=== PATIENT | female | born 1975 | race Caucasian/White ===

== ENCOUNTER 2018-07-26 22:04 | Emergency (ER) | payer OTHER ==
[~2018-07-26] VITALS: Ht 162.6 cm; Wt 55.3 kg
--- NOTE | 2018-07-26 23:05 | NUR ---
Asim burton in [facility] - 07/26/18 at 2337 by JF YAMILET AWAD AT BEDSIDE FOR EVAL
[2018-07-26 23:26] LABS: BASOPHILS % (AUTO) 0.3 % (0.0-2.0); HEMATOCRIT 40 % (33-45); HEMOGLOBIN 13.6 g/dL (11.5-14.8); LYMPHOCYTES # (AUTO) 2.6 /CMM (0.8-4.8); LYMPHOCYTES % (AUTO) 31.6 % (20.0-44.0); MEAN CORPUSCULAR HGB CONC 34 g/dl (31.0-36.0); MEAN CORPUSCULAR VOLUME 94 fL (82-100); MONOCYTES # (AUTO) 0.8 /CMM (0.1-1.30); MONOCYTES % (AUTO) 9.8 % (2.0-12.0); NEUTROPHILS # (AUTO) 4.7 /CMM (1.8-8.9); NEUTROPHILS % (AUTO) 57.3 % (43.0-81.0); PLATELET COUNT (AUTO) 211 /CMM (150-450); RED BLOOD CELL COUNT(AUTO) 4.21 MIL/uL (4.0-5.2); WHITE BLOOD COUNT (AUTO) 8.2 K/uL (4.3-11.0)
[2018-07-26 23:34] LABS: CALCIUM, SERUM 8.8 mg/dL (8.5-10.1); CARBON DIOXIDE 23 mmol/L (21-32); CHLORIDE 102 mmol/L (98-107); CREATININE 0.8 mg/dL (0.6-1.3); GLUCOSE 86 mg/dL (74-106); POTASSIUM 3.2 mmol/L (3.5-5.1); SODIUM SERUM 140 mmol/L (136-145); UREA NITROGEN, BLOOD 25 mg/dL (7-18)
--- NOTE | 2018-07-26 23:35 | NUR ---
PT BIBPD C/O "L EYE SWELLING, MIGHT BE PINK EYE, R EYE REDNESS" -SOB AMBULATORY. -NAD NOTED. RESP EVEN AND UNLABORED. PT ON MONITOR IN BED 14. WILL CONTINUE TO MONITOR.
[2018-07-26 23:40] LABS: ACETAMINOPHEN 0 ug/ml (10-30); ALANINE AMINOTRANSFERASE 26 U/L (12-78); ALCOHOL, BLOOD < 3 mg/dL (0-0); ALKALINE PHOSPHATASE 50 U/L (46-116); ASPARTATE AMINOTRANSFERASE 17 U/L (15-37); BILIRUBIN,TOTAL 1.4 mg/dL (0.2-1.0); LIPASE 76 U/L (73-393); TOTAL PROTEIN, SERUM 6.9 g/dL (6.4-8.2)
[2018-07-26] MEDS ORDERED: LORAZEPAM INJ 2 MG/ML VIAL ONE (23:56)
[2018-07-27] MEDS ORDERED: LORAZEPAM INJ 2 MG/ML VIAL IM ONE
[2018-07-27] MEDS ORDERED: LORAZEPAM INJ 2 MG/ML VIAL IV ONE
[2018-07-27] MEDS ORDERED: POTASSIUM CHLORIDE 20 MEQ TAB.PRT.SR PO ONE ×2 (00:30→00:34)
--- NOTE | 2018-07-27 01:28 | NUR ---
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
[2018-07-27 01:40] LABS: APPEARANCE,URINE Clear (CLEAR); BILIRUBIN,URINE MODERATE (NEGATIVE); BLOOD, URINE Trace-intact Ery/uL (NEGATIVE); COLOR,URINE Yellow (YELLOW); KETONES,URINE >=160 (NEGATIVE); LEUKOCYTE ESTERASE ,URINE Negative (NEGATIVE); NITRITE, URINE Negative (NEGATIVE); PH,URINE 5.5 (5.0-8.0); PROTEIN,URINE 30 mg/dl (NEGATIVE); UGLUCOSE Negative (NEGATIVE); UROBILINOGEN,URINE 0.2 EU/dL (0.2)
[2018-07-27 02:06] LABS: BACTERIA,URINE Few /HPF (None Seen); SQUAMOUS EPITHELIAL CELL,UR Few /HPF (None Seen)
--- NOTE | 2018-07-27 07:29 | NUR ---
REPORT GIVEN TO INESSA HAN FOR ZENA[facility]. ENDORSED KCL TO ONCOMING NURSE.
--- NOTE | 2018-07-27 08:18 | NUR ---
PATIENT ALERT AND ORIENTED X3, ADMINISTERED POTASSIUM. PATIENT'S IN NAD, VSS. DISCHARGE INSTRUCTIONS PROVIDED TO PATIENT AND [employer], BOTH VERBALIZED UNDERSTANDING. PATIENT DISCHARGED TO [employer] CUSTODY. NO DISTRESS NOTED.
[2018-07-27 09:14] VITALS: BP 96/57
== END 2018-07-27 09:14 ==
LOC: ER 22:05
DX: H10.89 Other conjunctivitis (principal); F20.9 Schizophrenia, unspecified
CPT/HCPCS: 36415; 80053; 80305; 80307; 80329; 81001; 83690; 84703; 85025; 87086; 96372; 99283; G0480; J2060; 81000-TC